=== PATIENT | male | born 1960 | race African-American/Black ===

== ENCOUNTER 2023-04-21 15:57 | Emergency (ER) | payer OTHER ==
[2023-04-21 16:17] VITALS: TEMP 97.8; BMI 33.9
[2023-04-21 16:26] VITALS: BP 122/68; PULSE 89; RESP 16
[2023-04-21] MEDS ORDERED: DIPHTH,PERTUSS(ACELL),TET 0.5 ML DISP.SYRIN IM ONE (16:38)
[2023-04-21] MEDS: DIPHTH,PERTUSS(ACELL),TET 0.5 ML DISP.SYRIN IM ONE (16:51)
[2023-04-21] MEDS ORDERED: AMOX TR/POT CLAV 875MG/125MG TABLETS (FP) ONE (17:00)
[2023-04-21] MEDS: AMOX TR/POT CLAV 875MG/125MG TABLETS (FP) PO ONE (17:02)
[2023-04-21 17:11] LABS: HEMATOCRIT 45.3 % (35.4-49); MCH 28.4 pg (25.7-33.7); MCHC 33.2 g/dl (32.0-35.9); MEAN CELL VOLUME 85.6 fl (80-96); MEAN PLT VOLUME 9.3 fl (7.5-11.1); PLATELET COUNT 170.1 10^3/uL (134-434); RBC 5.29 10^6/uL (4.00-5.60); RDW 14.6 % (11.9-15.9)
[2023-04-21 17:30] LABS: ALBUMIN 4.8 g/dl (3.4-5.0); BILIRUBIN,TOTAL 0.3 mg/dl (0.2-1); CREATININE 0.9 mg/dl (0.6-1.3); POTASSIUM 4.1 mmol/L (3.5-5.1); TOT PROT 7.6 g/dl (6.4-8.2)
[2023-04-21 18:04] LABS: PLATELET ESTIMATE ADEQUATE
[2023-04-21 18:51] LABS: HIV INTERPRETATION NEGATIVE (NEGATIVE)
== END 2023-04-21 18:40 | disposition home or self-care (01) ==
LOC: FER 15:57
PROC: 3E0234Z Introduction of Serum, Toxoid and Vaccine into Muscle, Percutaneous Approach (ICD-10-PCS; principal; 2023-04-21)
DX: S61.451A Open bite of right hand, initial encounter (principal); W50.3XXA Accidental bite by another person, initial encounter; Y92.199 Unspecified place in other specified residential institution as the place of occurrence of the external cause
CPT/HCPCS: 36415; 80053; 85025; 86704; 86803; 87340; 87389; 87517; 90715; 99283-25